=== PATIENT | female | born 1980 | race Caucasian/White ===

== ENCOUNTER 2019-02-21 08:38 | Outpatient (CLI) | payer OTHER ==
--- NOTE | 2019-02-21 12:18 | MRI ---
MRI BRAIN WITH AND WITHOUT CONTRAST: INDICATIONS: Headache. FINDINGS: The ventricles have normal size and position. Dental appliances produce significant artifact, degrading many of the sequences. Diffusion-weighted s equences are significantly degraded. The ventricles have normal size and position. No evidence of restricted diffusion. No mass or edema i dentified. There are a few scattered tiny white matter hyperintensities seen on FLAIR sequence, in denice th cerebral hemispheres. These are nonspecific. There is no evidence of abnormal enhancement. The intracranial internal carotid arteries and cerebral arteries show normal flow voids. The dural ve nous sinuses appear patent. The paranasal sinuses and mastoids appear clear. IMPRESSION: 1. No evidence of acute process. 2. Scattered tiny white matter hyperintensities are seen in both cerebral hemispheres, primarily fron jodi lobes. Findings are nonspecific. These changes can be seen with vascular headaches. They are not typical of an acute demyelinating process. Suggest follow-up MRI which should be performed without co ntrast in six months to confirm stability of these nonspecific white matter intensities. POS: [facility]
== END 2019-02-21 08:39 | disposition home or self-care (01) ==
LOC: SCSMRI 08:38
PROVIDERS: ATTEND Family Medicine
DX: R51 Headache (principal); G93.89 Other specified disorders of brain
CPT/HCPCS: 70553

== ENCOUNTER 2019-03-06 09:59 | Emergency (ER) | payer OTHER ==
[2019-03-06] MEDS ORDERED: diphenhydrAMINE 50 MG/ML VIAL ONE (10:20)
[2019-03-06] MEDS ORDERED: Metoclopramide HCl 10 MG/2 ML VIAL ONE (10:20)
[2019-03-06] MEDS ORDERED: methylPREDNISolone Sod Succ/PF 125 MG/2 ML VIAL ONE (10:20)
[2019-03-06] MEDS ORDERED: Ketorolac Tromethamine 30 MG/ML VIAL ONE (10:20)
== END 2019-03-06 12:08 | disposition home or self-care (01) ==
LOC: SCSER 09:59
DX: R51 Headache (principal); K21.9 Gastro-esophageal reflux disease without esophagitis; F41.9 Anxiety disorder, unspecified; Z79.899 Other long term (current) drug therapy
CPT/HCPCS: 96365; 96366; 96368; 96375; J1200; J1885; J2765; J2930

== ENCOUNTER 2019-03-22 07:18 | Outpatient (CLI) | payer OTHER ==
--- NOTE | 2019-03-22 08:30 | ULT ---
ULTRASOUND ABDOMEN LIMITED: (RIGHT UPPER QUADRANT) DATE: 03/22/2019 HISTORY: 39-year-old female with right upper quadrant abdominal pain FINDINGS: Gallbladder: Normal wall thickness. No gallstones or sludge identified. No pericholecystic fluid. Liver: Normal parenchymal echogenicity. Right kidney: No hydronephrosis. Pancreas: Visualized, with no gross sonographic abnormality identified (although ultrasound is relati vely insensitive for the detection of pancreatic pathology compared to CT and MRI.). Common duct caliber: 4 mm. IMPRESSION: Normal.
== END 2019-03-22 07:19 | disposition home or self-care (01) ==
LOC: SCSULT 07:18
PROVIDERS: ATTEND Family Medicine
DX: R10.11 Right upper quadrant pain (principal)
CPT/HCPCS: 76705